=== PATIENT | male | born 1995 | race African-American/Black ===

== ENCOUNTER 2024-03-05 21:51 | Emergency (ER) | payer BC | END 2024-03-05 23:50 | disposition left against medical advice (07) | LOC: ER 22:02 | DX: S62.90XA Unspecified fracture of unspecified hand, initial encounter for closed fracture (principal); Z53.21 Procedure and treatment not carried out due to patient leaving prior to being seen by health care provider; X58.XXXA Exposure to other specified factors, initial encounter; Y93.89 Activity, other specified; Y92.89 Other specified places as the place of occurrence of the external cause; Y99.8 Other external cause status ==

== ENCOUNTER 2024-03-12 18:11 | Emergency (ER) | payer BC | END 2024-03-12 18:45 | disposition left against medical advice (07) | LOC: ER 18:16 | DX: R19.7 Diarrhea, unspecified (principal); Z53.21 Procedure and treatment not carried out due to patient leaving prior to being seen by health care provider ==